=== PATIENT | male | born 1965 | race Caucasian/White ===

== ENCOUNTER 2021-09-20 13:38 | Inpatient (IN) | payer OTHER ==
[2021-09-20] MEDS ORDERED: NICOTINE 10 MG CARTRIDGE (INHALER) IH PRN (14:30)
[2021-09-20] MEDS ORDERED: ONDANSETRON *ODT* 4 MG TABLET SL PRN (14:30)
[2021-09-20] MEDS ORDERED: BISMUTH SUBSALICYLATE 524 MG/30 ML PO PRN (14:30)
[2021-09-20] MEDS ORDERED: MAGNESIUM HYDROX 2400MG/30ML ORAL SUSPENSION 30 ML CUP PO PRN (14:30)
[2021-09-20] MEDS ORDERED: MAGNESIUM CITRATE 300 ML BOTTLE PO PRN (14:30)
[2021-09-20] MEDS ORDERED: ACETAMINOPHEN 325 MG TABLET (FP) PO PRN (14:30)
[2021-09-20] MEDS ORDERED: methaDONE HCL 10 MG TABLET (FOR DETOX USE ONLY) PO ONE (14:30)
[2021-09-20] MEDS ORDERED: MENTHOL/PHENOL 1 EACH UD MM PRN (14:30)
[2021-09-20] MEDS ORDERED: MAG HYDROX/AL HYDROX/SIMETH 30 ML UNIT-DOSE CUP PO PRN (14:30)
[2021-09-20 16:30] VITALS: BMI 19.8
[2021-09-20] MEDS: ACETAMINOPHEN 325 MG TABLET (FP) PO PRN (17:33)
[2021-09-20] MEDS: hydrOXYzine PAMOATE 25 MG CAPSULE (FP) PO SCH ×2 (18:20→23:11)
[2021-09-20] MEDS ORDERED: MELATONIN 5 MG TABLETS PO SCH (22:00)
[2021-09-20] MEDS: THIAMINE HCL 100 MG TABLET (FP) PO SCH (23:11)
[2021-09-21] MEDS: hydrOXYzine PAMOATE 25 MG CAPSULE (FP) PO SCH ×5 (06:03→22:50)
[2021-09-21] MEDS: METHOCARBAMOL 500 MG TABLET PO PRN (06:13)
[2021-09-21] MEDS: IBUPROFEN 400 MG TABLET (FP) PO PRN (06:13)
[2021-09-21] MEDS ORDERED: methaDONE HCL 10 MG TABLET (FOR DETOX USE ONLY) ONE (09:24)
[2021-09-21] MEDS: PRENATAL VITAMINS W/ FOLIC ACID TABLET (FP) PO SCH (10:19)
[2021-09-21] MEDS: NICOTINE 7 MG/24 HOURS TOPICAL PATCH TD SCH (10:22)
[2021-09-21 10:31] LABS: HEMATOCRIT 35.8 % (35.4-49); HEMOGLOBIN 11.8 GM/dL (11.7-16.9); MCH 28.4 pg (25.7-33.7); MCHC 32.8 g/dl (32.0-35.9); MEAN CELL VOLUME 86.6 fl (80-96); MEAN PLT VOLUME 8.3 fl (7.5-11.1); PLATELET COUNT 351 10^3/uL (134-434); RBC 4.14 M/mm3 (4.00-5.60); RDW 15.5 % (11.9-15.9)
[2021-09-21 10:36] LABS: ALBUMIN 2.9 g/dl (3.4-5.0)
[2021-09-21 10:38] LABS: CALCIUM 8.9 mg/dL (8.5-10.1)
[2021-09-21 10:42] LABS: TOT PROT 7.2 g/dl (6.4-8.2)
[2021-09-21 10:43] LABS: CREATININE 1.1 mg/dL (0.55-1.3)
[2021-09-21 10:47] LABS: BILIRUBIN,TOTAL 0.3 mg/dL (0.2-1)
[2021-09-21] MEDS: cloNIDine HCL 0.1 MG TABLET PO PRN ×2 (11:29→22:52)
[2021-09-21] MEDS ORDERED: diazePAM 5 MG TABLET PO PRN (11:52)
[2021-09-21 12:34] LABS: HIV INTERPRETATION NEGATIVE (NEGATIVE)
[2021-09-21] MEDS: ACETAMINOPHEN 325 MG TABLET (FP) PO PRN (18:59)
[2021-09-21] MEDS ORDERED: hydrOXYzine PAMOATE 50 MG CAPSULE (FP) PO ONE (20:53)
[2021-09-21] MEDS ORDERED: TRIMETHOBENZAMIDE HCL 200MG/2ML INJ IM ONE (20:55)
[2021-09-21] MEDS ORDERED: SUVOREXANT 10 MG TABLET PO PRN (22:00)
[2021-09-21] MEDS: THIAMINE HCL 100 MG TABLET (FP) PO SCH (22:52)
[2021-09-22] MEDS: hydrOXYzine PAMOATE 25 MG CAPSULE (FP) PO SCH ×5 (05:49→23:27)
[2021-09-22] MEDS: IBUPROFEN 400 MG TABLET (FP) PO PRN ×4 (05:49→23:25)
[2021-09-22] MEDS: METHOCARBAMOL 500 MG TABLET PO PRN ×4 (05:49→23:26)
[2021-09-22] MEDS: cloNIDine HCL 0.1 MG TABLET PO PRN ×3 (05:50→23:22)
[2021-09-22] MEDS: diazePAM 5 MG TABLET PO PRN ×3 (05:50→23:26)
[2021-09-22] MEDS ORDERED: methaDONE HCL 10 MG TABLET (FOR DETOX USE ONLY) PO ONE (10:00)
[2021-09-22] MEDS: amLODIPine BESYLATE 10 MG TABLET (FP) PO SCH (10:53)
[2021-09-22] MEDS: PRENATAL VITAMINS W/ FOLIC ACID TABLET (FP) PO SCH (10:54)
[2021-09-22] MEDS: NICOTINE 7 MG/24 HOURS TOPICAL PATCH TD SCH (10:57)
[2021-09-22] MEDS: LIDOCAINE 5% TOPICAL PATCH TP SCH (10:57)
[2021-09-22] MEDS: ACETAMINOPHEN 325 MG TABLET (FP) PO PRN (16:00)
[2021-09-22] MEDS: LIDOCAINE PATCH REMOVAL MC SCH (23:22)
[2021-09-22] MEDS: THIAMINE HCL 100 MG TABLET (FP) PO SCH (23:22)
[2021-09-23] MEDS ORDERED: diazePAM 5 MG TABLET PO PRN (00:01)
[2021-09-23] MEDS: hydrOXYzine PAMOATE 25 MG CAPSULE (FP) PO SCH ×5 (06:01→23:39)
[2021-09-23] MEDS: LIDOCAINE 5% TOPICAL PATCH TP SCH (11:07)
[2021-09-23] MEDS: amLODIPine BESYLATE 10 MG TABLET (FP) PO SCH (11:08)
[2021-09-23] MEDS: PRENATAL VITAMINS W/ FOLIC ACID TABLET (FP) PO SCH (11:08)
[2021-09-23] MEDS: NICOTINE 7 MG/24 HOURS TOPICAL PATCH TD SCH (11:09)
[2021-09-23 15:32] VITALS: BP 136/84; PULSE 87; TEMP 98.2
[2021-09-23] MEDS: THIAMINE HCL 100 MG TABLET (FP) PO SCH (23:39)
[2021-09-23] MEDS: LIDOCAINE PATCH REMOVAL MC SCH (23:39)
[2021-09-24] MEDS ORDERED: diazePAM 5 MG TABLET PO PRN (00:01)
[2021-09-24] MEDS ORDERED: methaDONE HCL 10 MG TABLET (FOR DETOX USE ONLY) PO ONE (10:00)
== END 2021-09-23 23:38 | disposition short-term general hospital (02) | DRG 773 ==
LOC: YASAS 13:38 → Y6N 15:42
PROVIDERS: ADMIT Allergy & Immunology; ATTEND Allergy & Immunology
PROC: HZ2ZZZZ Detoxification Services for Substance Abuse Treatment (ICD-10-PCS; principal; 2021-09-20)
DX: F11.23 Opioid dependence with withdrawal (principal); F14.20 Cocaine dependence, uncomplicated; F17.210 Nicotine dependence, cigarettes, uncomplicated; F43.10 Post-traumatic stress disorder, unspecified; F19.24 Other psychoactive substance dependence with psychoactive substance-induced mood disorder; F19.280 Other psychoactive substance dependence with psychoactive substance-induced anxiety disorder; F19.282 Other psychoactive substance dependence with psychoactive substance-induced sleep disorder; I10 Essential (primary) hypertension; M54.59 Other low back pain; G89.29 Other chronic pain; R73.09 Other abnormal glucose; R63.4 Abnormal weight loss; R26.2 Difficulty in walking, not elsewhere classified; Z99.89 Dependence on other enabling machines and devices; W19.XXXA Unspecified fall, initial encounter; Y93.9 Activity, unspecified; Y92.239 Unspecified place in hospital as the place of occurrence of the external cause; Z88.8 Allergy status to other drugs, medicaments and biological substances; Z91.51 Personal history of suicidal behavior; Z62.810 Personal history of physical and sexual abuse in childhood; Z86.19 Personal history of other infectious and parasitic diseases; Z56.0 Unemployment, unspecified
CPT/HCPCS: 36415; 72100-TC-FY; 80053; 82962; 85027; 86780; 86803; 87389; 87522; C9803; J0735; U0003; U0005

== ENCOUNTER 2021-09-23 11:21 | Inpatient (IN) | payer OTHER ==
[2021-09-23] MEDS ORDERED: ACETAMINOPHEN 1000 MG/100 ML VIAL IVPB ONE (12:14)
[2021-09-23] MEDS ORDERED: SODIUM CHLORIDE 0.9% 500 ML INFUS.BAG IV ONE (12:14)
[2021-09-23] MEDS ORDERED: LIDOCAINE 5% TOPICAL PATCH TP ONE (12:15)
[2021-09-23] MEDS ORDERED: ACETAMINOPHEN INJECTION 100 ML IVPB ONE (12:41)
[2021-09-23] MEDS ORDERED: LIDOCAINE 5% TOPICAL PATCH ONE (12:41)
[2021-09-23 12:54] LABS: EOS % 0.2 % (0-4.5); HEMATOCRIT 41.6 % (35.4-49); HEMOGLOBIN 14.1 GM/dL (11.7-16.9); LYMPH % 20.3 % (8-40); MCH 28.7 pg (25.7-33.7); MCHC 33.8 g/dl (32.0-35.9); MEAN CELL VOLUME 84.9 fl (80-96); NEUT % 69.5 % (42.8-82.8); PLATELET COUNT 387 10^3/uL (134-434); RBC 4.91 M/mm3 (4.00-5.60); RDW 15.4 % (11.9-15.9); WHITE BLOOD COUNT 7.1 K/mm3 (4.0-10.0)
[2021-09-23 13:23] LABS: CHLORIDE 98 mmol/L (98-107); SODIUM 135 mmol/L (136-145)
[2021-09-23 13:25] LABS: ANION GAP 9 MMOL/L (8-16); BLOOD UREA NITROGEN 15.8 mg/dL (7-18); CALCIUM 10.1 mg/dL (8.5-10.1); CO2 29 mmol/L (21-32); GLUCOSE,RANDOM 145 mg/dL (74-106)
[2021-09-23 13:28] LABS: SGOT/AST 17 U/L (15-37); SGPT/ALT 16 U/L (13-61)
[2021-09-23 13:30] LABS: BILIRUBIN,TOTAL 0.6 mg/dL (0.2-1); TOT PROT 8.8 g/dl (6.4-8.2)
[2021-09-23 13:31] LABS: ALK PHOS 131 U/L (45-117)
[2021-09-23 13:50] LABS: ALBUMIN 3.5 g/dl (3.4-5.0)
[2021-09-23] MEDS ORDERED: methaDONE HCL 10 MG TABLET PO ONE (14:24)
[2021-09-23] MEDS ORDERED: methaDONE HCL 10 MG TABLET ONE (14:38)
[2021-09-23] MEDS ORDERED: SUVOREXANT 10 MG TABLET PO PRN (14:47)
[2021-09-23 16:32] LABS: URINE APPEARANCE CLEAR; URINE BILIRUBIN NEGATIVE (NEGATIVE); URINE COLOR YELLOW; URINE GLUCOSE (UA) TRACE (NEGATIVE); URINE KETONE NEGATIVE (NEGATIVE); URINE LEUK ESTERASE NEGATIVE (NEGATIVE); URINE NITRITE NEGATIVE (NEGATIVE); URINE PROTEIN NEGATIVE (NEGATIVE); URINE UROBILINOGEN 0.2 mg/dL (0.2-1.0)
[2021-09-23] MEDS: diazePAM 5 MG TABLET PO PRN ×2 (16:40→22:45)
[2021-09-23] MEDS ORDERED: diazePAM 5 MG TABLET ONE ×2 (16:41→22:43)
[2021-09-23] MEDS: NICOTINE 14 MG/24 HOURS TOPICAL PATCH TD SCH ×2 (21:58→23:37)
[2021-09-23] MEDS ORDERED: LIDOCAINE PATCH REMOVAL MC ONE (22:00)
[2021-09-23 23:52] VITALS: BMI 22.4
[2021-09-24] MEDS: ZOLPIDEM TARTRATE 5 MG TABLET PO PRN ×2 (00:18→21:13)
[2021-09-24] MEDS ORDERED: ACETAMINOPHEN 1000 MG/100 ML VIAL IVPB ONE ×2 (01:11→21:00)
[2021-09-24] MEDS: diazePAM 5 MG TABLET PO PRN ×2 (04:28→21:12)
[2021-09-24 08:44] LABS: CALCIUM 9.6 mg/dL (8.5-10.1)
[2021-09-24 08:45] LABS: BLOOD UREA NITROGEN 12.7 mg/dL (7-18); MAGNESIUM 2.4 mg/dL (1.8-2.4)
[2021-09-24 08:48] LABS: CREATININE 0.8 mg/dL (0.55-1.3)
[2021-09-24] MEDS ORDERED: NICOTINE 14 MG/24 HOURS TOPICAL PATCH TD SCH (10:00)
[2021-09-24] MEDS ORDERED: methaDONE HCL 10 MG TABLET ONE (10:18)
[2021-09-24] MEDS: cloNIDine HCL 0.1 MG TABLET PO PRN (10:20)
[2021-09-24] MEDS: amLODIPine BESYLATE 10 MG TABLET (FP) PO SCH (10:26)
[2021-09-24] MEDS: NICOTINE 14 MG/24 HOURS TOPICAL PATCH TD SCH (10:26)
[2021-09-24] MEDS ORDERED: oxyCODONE HCL 5 MG TABLET PO ONE (13:03)
[2021-09-24] MEDS ORDERED: MELATONIN 5 MG TABLETS PO ONE (21:01)
[2021-09-25] MEDS: diazePAM 5 MG TABLET PO PRN ×2 (08:12→17:44)
[2021-09-25] MEDS: amLODIPine BESYLATE 10 MG TABLET (FP) PO SCH (09:14)
[2021-09-25] MEDS: NICOTINE 14 MG/24 HOURS TOPICAL PATCH TD SCH (09:14)
[2021-09-25] MEDS ORDERED: methaDONE HCL 10 MG TABLET PO ONE (10:00)
[2021-09-25] MEDS ORDERED: IBUPROFEN 200 MG TABLET PO ONE (10:28)
[2021-09-25] MEDS: POLYETHYLENE GLYCOL (HEALTHYLAX) 3350 17 GM PACKET PO SCH (11:52)
[2021-09-25] MEDS: LIDOCAINE 5% TOPICAL PATCH TP SCH (11:57)
[2021-09-25 17:59] LABS: BASO % 1.1 % (0-2.0); EOS % 1.7 % (0-4.5); HEMATOCRIT 36.8 % (35.4-49); HEMOGLOBIN 12.2 GM/dL (11.7-16.9); LYMPH % 31.7 % (8-40); MCH 28.1 pg (25.7-33.7); MCHC 33.1 g/dl (32.0-35.9); MEAN CELL VOLUME 85.1 fl (80-96); MEAN PLT VOLUME 8.3 fl (7.5-11.1); MONO % 10.1 % (3.8-10.2); NEUT % 55.4 % (42.8-82.8); PLATELET COUNT 334 10^3/uL (134-434); RBC 4.33 M/mm3 (4.00-5.60); RDW 15.5 % (11.9-15.9); WHITE BLOOD COUNT 6.9 K/mm3 (4.0-10.0)
[2021-09-25 18:19] LABS: CHLORIDE 101 mmol/L (98-107); SODIUM 139 mmol/L (136-145)
[2021-09-25 18:24] LABS: ANION GAP 7 MMOL/L (8-16); CALCIUM 9.2 mg/dL (8.5-10.1); CO2 32 mmol/L (21-32); GLUCOSE,RANDOM 89 mg/dL (74-106); MAGNESIUM 2.6 mg/dL (1.8-2.4)
[2021-09-25 18:27] LABS: CREATININE 1.2 mg/dL (0.55-1.3); SGOT/AST 10 U/L (15-37); SGPT/ALT 12 U/L (13-61)
[2021-09-25 18:29] LABS: BILIRUBIN,TOTAL 0.3 mg/dL (0.2-1); TOT PROT 7.3 g/dl (6.4-8.2)
[2021-09-25 18:30] LABS: ALK PHOS 131 U/L (45-117)
[2021-09-25] MEDS: LIDOCAINE PATCH REMOVAL MC SCH (21:18)
[2021-09-25] MEDS: ZOLPIDEM TARTRATE 5 MG TABLET PO PRN (21:20)
[2021-09-25] MEDS ORDERED: IBUPROFEN 400 MG TABLET (FP) PO ONE (22:16)
[2021-09-26] MEDS: diazePAM 5 MG TABLET PO PRN ×3 (02:46→21:19)
[2021-09-26] MEDS ORDERED: KETOROLAC TROMETHAMINE 30 MG/1 ML VIAL IM ONE (03:50)
[2021-09-26] MEDS: cloNIDine HCL 0.1 MG TABLET PO PRN ×3 (04:05→17:03)
[2021-09-26] MEDS ORDERED: IBUPROFEN 200 MG TABLET PO ONE (08:45)
[2021-09-26] MEDS ORDERED: NICOTINE POLACRILEX 4 MG GUM BUC PRN (09:18)
[2021-09-26] MEDS: amLODIPine BESYLATE 10 MG TABLET (FP) PO SCH (09:31)
[2021-09-26] MEDS: POLYETHYLENE GLYCOL (HEALTHYLAX) 3350 17 GM PACKET PO SCH (09:32)
[2021-09-26] MEDS: LIDOCAINE 5% TOPICAL PATCH TP SCH (09:32)
[2021-09-26] MEDS ORDERED: LIDOCAINE 5% TOPICAL PATCH TP ONE (10:07)
[2021-09-26] MEDS ORDERED: oxyCODONE HCL 5 MG TABLET PO PRN (10:11)
[2021-09-26] MEDS ORDERED: oxyCODONE HCL 20 MG SUSTAINED ACTING TABLET PO SCH (10:15)
[2021-09-26] MEDS: ACETAMINOPHEN 325 MG TABLET (FP) PO SCH ×3 (11:16→22:10)
[2021-09-26] MEDS: GABAPENTIN 100 MG CAPSULE PO SCH ×2 (14:47→21:19)
[2021-09-26] MEDS: oxyCODONE HCL 5 MG TABLET PO PRN ×2 (15:17→22:14)
[2021-09-26 20:08] LABS: BASO % 1.2 % (0-2.0); EOS % 2.1 % (0-4.5); HEMOGLOBIN 11.3 GM/dL (11.7-16.9); MCH 28.4 pg (25.7-33.7); MCHC 33.3 g/dl (32.0-35.9); MEAN CELL VOLUME 85.3 fl (80-96); MEAN PLT VOLUME 7.9 fl (7.5-11.1); NEUT % 57.7 % (42.8-82.8); PLATELET COUNT 277 10^3/uL (134-434); RBC 3.99 M/mm3 (4.00-5.60); RDW 15.7 % (11.9-15.9); WHITE BLOOD COUNT 6.4 K/mm3 (4.0-10.0)
[2021-09-26] MEDS: ZOLPIDEM TARTRATE 5 MG TABLET PO PRN (21:18)
[2021-09-26] MEDS ORDERED: LIDOCAINE PATCH REMOVAL MC ONE (22:00)
[2021-09-26 22:02] LABS: ALBUMIN 2.6 g/dl (3.4-5.0); BILIRUBIN,TOTAL 0.2 mg/dL (0.2-1); BLOOD UREA NITROGEN 31.9 mg/dL (7-18); CALCIUM 8.7 mg/dL (8.5-10.1); CREATININE 1.1 mg/dL (0.55-1.3); MAGNESIUM 2.3 mg/dL (1.8-2.4); TOT PROT 6.5 g/dl (6.4-8.2)
[2021-09-26] MEDS: LIDOCAINE PATCH REMOVAL MC SCH (22:14)
[2021-09-27] MEDS: oxyCODONE HCL 5 MG TABLET PO PRN ×2 (03:15→09:20)
[2021-09-27] MEDS: ACETAMINOPHEN 325 MG TABLET (FP) PO SCH ×4 (03:16→21:52)
[2021-09-27] MEDS: diazePAM 5 MG TABLET PO PRN (05:41)
[2021-09-27] MEDS: GABAPENTIN 100 MG CAPSULE PO SCH (05:42)
[2021-09-27] MEDS: LIDOCAINE 5% TOPICAL PATCH TP SCH (09:18)
[2021-09-27] MEDS: amLODIPine BESYLATE 10 MG TABLET (FP) PO SCH (09:18)
[2021-09-27] MEDS: POLYETHYLENE GLYCOL (HEALTHYLAX) 3350 17 GM PACKET PO SCH (09:19)
[2021-09-27] MEDS ORDERED: morphine SO4 SUSTAINED ACTING 15 MG TABLET.SA PO ONE ×2 (10:45→22:27)
[2021-09-27] MEDS: GABAPENTIN 300 MG CAPSULE PO SCH ×2 (14:27→21:22)
[2021-09-27] MEDS ORDERED: NICOTINE POLACRILEX 4 MG GUM BUC PRN (19:41)
[2021-09-27] MEDS ORDERED: ZOLPIDEM TARTRATE 5 MG TABLET PO PRN (19:41)
[2021-09-27] MEDS ORDERED: LIDOCAINE PATCH REMOVAL MC SCH (22:00)
[2021-09-27] MEDS ORDERED: cloNIDine HCL 0.1 MG TABLET PO PRN (22:20)
[2021-09-27] MEDS ORDERED: KETOROLAC TROMETHAMINE 15 MG/ML VIAL IVPUSH ONE (22:28)
[2021-09-27] MEDS ORDERED: DOCUSATE SODIUM 100 MG CAPSULE (FP) PO PRN (22:30)
[2021-09-28] MEDS: ACETAMINOPHEN 325 MG TABLET (FP) PO SCH ×4 (04:20→11:25)
[2021-09-28] MEDS: GABAPENTIN 300 MG CAPSULE PO SCH (05:45)
[2021-09-28 06:25] VITALS: TEMP 98.4
[2021-09-28] MEDS ORDERED: amLODIPine BESYLATE 10 MG TABLET (FP) PO SCH (10:00)
[2021-09-28] MEDS ORDERED: LIDOCAINE 5% TOPICAL PATCH TP SCH (10:00)
[2021-09-28] MEDS ORDERED: POLYETHYLENE GLYCOL (HEALTHYLAX) 3350 17 GM PACKET PO SCH (10:00)
[2021-09-28 11:06] VITALS: BP 155/79; PULSE 81
[2021-09-28] MEDS ORDERED: LIDOCAINE PATCH REMOVAL MC SCH (22:00)
== END 2021-09-28 14:02 | disposition left against medical advice (07) | DRG 770 ==
LOC: JER 11:21 → JERBED 14:39 → J4W 23:34 → OBSVTOIN 09-27 11:43 → J6S 09-27 17:20
PROVIDERS: ADMIT Internal Medicine; ATTEND Nurse Practitioner Acute Care
DX: F11.23 Opioid dependence with withdrawal (principal); F14.10 Cocaine abuse, uncomplicated; I10 Essential (primary) hypertension; R11.2 Nausea with vomiting, unspecified; R55 Syncope and collapse; R07.89 Other chest pain; F43.10 Post-traumatic stress disorder, unspecified; F19.20 Other psychoactive substance dependence, uncomplicated; R45.851 Suicidal ideations; M54.50 Low back pain, unspecified; B15.9 Hepatitis A without hepatic coma; F13.20 Sedative, hypnotic or anxiolytic dependence, uncomplicated
CPT/HCPCS: 36415; 70450-TC; 71046-TC-FY; 72125-TC; 80048; 80053; 81003; 82550; 83735; 84484; 85025; 87086; 93005; 93010; 97116-GP; 97162-GP; 99285-25; C9803; G0378; J0131; J0735; U0003; U0005

== ENCOUNTER 2022-05-18 12:25 | Inpatient (IN) | payer OTHER ==
[2022-05-18 14:28] VITALS: BMI 20.3
[2022-05-18] MEDS ORDERED: BENZOCAINE/MENTHOL (CHLORASEPTIC ) LOZENGE MM PRN (14:58)
[2022-05-18] MEDS ORDERED: MAG HYDROX/AL HYDROX/SIMETH 30 ML UNIT-DOSE CUP PO PRN (14:58)
[2022-05-18] MEDS ORDERED: IBUPROFEN 400 MG TABLET (FP) PO PRN (14:58)
[2022-05-18] MEDS ORDERED: METHOCARBAMOL 500 MG TABLET PO PRN (14:58)
[2022-05-18] MEDS ORDERED: IBUPROFEN 600 MG TABLET (FP) PO PRN (14:58)
[2022-05-18] MEDS ORDERED: MAGNESIUM CITRATE 300 ML BOTTLE PO PRN (14:58)
[2022-05-18] MEDS ORDERED: MAGNESIUM HYDROX 2400MG/30ML ORAL SUSPENSION 30 ML CUP PO PRN (14:58)
[2022-05-18] MEDS ORDERED: BISMUTH SUBSALICYLATE 262 MG/15 ML BTL PO PRN (14:58)
[2022-05-18] MEDS ORDERED: ACETAMINOPHEN 325 MG TABLET (FP) PO PRN ×2 (14:58)
[2022-05-18] MEDS ORDERED: LOPERAMIDE HCL 2 MG CAPSULE PO PRN (14:58)
[2022-05-18] MEDS ORDERED: DICYCLOMINE HCL 10 MG CAPSULE PO PRN (14:58)
[2022-05-18] MEDS ORDERED: methaDONE HCL 10 MG TABLET (FOR DETOX USE ONLY) PO ONE (15:30)
[2022-05-18] MEDS: hydrOXYzine PAMOATE 25 MG CAPSULE (FP) PO SCH ×2 (18:29→23:12)
[2022-05-18] MEDS: diazePAM 5 MG TABLET PO SCH ×2 (18:29→23:12)
[2022-05-18] MEDS: MELATONIN 5 MG TABLETS PO SCH (23:12)
[2022-05-18] MEDS: THIAMINE HCL 100 MG TABLET (FP) PO SCH (23:12)
[2022-05-19] MEDS: diazePAM 5 MG TABLET PO SCH ×4 (06:50→23:12)
[2022-05-19] MEDS: hydrOXYzine PAMOATE 25 MG CAPSULE (FP) PO SCH (06:51)
[2022-05-19] MEDS: hydrOXYzine PAMOATE 25 MG CAPSULE (FP) PO PRN (10:50)
[2022-05-19] MEDS: amLODIPine BESYLATE 10 MG TABLET (FP) PO SCH (10:51)
[2022-05-19] MEDS: PRENATAL VITAMINS W/ FOLIC ACID TABLET (FP) PO SCH (10:51)
[2022-05-19] MEDS: methaDONE HCL 40 MG DISPERSABLE TABLET PO SCH (10:53)
[2022-05-19 11:07] LABS: HEMATOCRIT 33.3 % (35.4-49); HEMOGLOBIN 11.1 GM/dL (11.7-16.9); MCH 28.3 pg (25.7-33.7); MCHC 33.5 g/dl (32.0-35.9); MEAN CELL VOLUME 84.6 fl (80-96); MEAN PLT VOLUME 8.5 fl (7.5-11.1); PLATELET COUNT 283 10^3/uL (134-434); RBC 3.93 M/mm3 (4.00-5.60); RDW 15.5 % (11.9-15.9); WHITE BLOOD COUNT 4.7 K/mm3 (4.0-10.0)
[2022-05-19 11:34] LABS: CALCIUM 9.2 mg/dL (8.5-10.1)
[2022-05-19 11:35] LABS: BLOOD UREA NITROGEN 18.8 mg/dL (7-18)
[2022-05-19 11:39] LABS: BILIRUBIN,TOTAL 0.7 mg/dL (0.2-1)
[2022-05-19 11:42] LABS: TOT PROT 6.6 g/dl (6.4-8.2)
[2022-05-19] MEDS: ONDANSETRON *ODT* 4 MG TABLET SL PRN (13:21)
[2022-05-19] MEDS ORDERED: cloNIDine HCL 0.1 MG TABLET PO ONE (13:21)
[2022-05-19] MEDS: MELATONIN 5 MG TABLETS PO SCH (23:11)
[2022-05-19] MEDS: THIAMINE HCL 100 MG TABLET (FP) PO SCH (23:12)
[2022-05-20] MEDS: diazePAM 5 MG TABLET PO SCH ×3 (06:17→22:45)
[2022-05-20] MEDS: methaDONE HCL 40 MG DISPERSABLE TABLET PO SCH (06:18)
[2022-05-20] MEDS: diazePAM 5 MG TABLET PO PRN ×2 (08:48→19:11)
[2022-05-20] MEDS: amLODIPine BESYLATE 10 MG TABLET (FP) PO SCH (10:58)
[2022-05-20] MEDS: PRENATAL VITAMINS W/ FOLIC ACID TABLET (FP) PO SCH (10:58)
[2022-05-20] MEDS: hydrOXYzine PAMOATE 25 MG CAPSULE (FP) PO PRN (10:58)
[2022-05-20] MEDS: ONDANSETRON *ODT* 4 MG TABLET SL PRN (21:56)
[2022-05-20] MEDS: MELATONIN 5 MG TABLETS PO SCH (22:45)
[2022-05-20] MEDS: THIAMINE HCL 100 MG TABLET (FP) PO SCH (22:45)
[2022-05-21] MEDS: diazePAM 5 MG TABLET PO PRN ×2 (02:50→10:06)
[2022-05-21] MEDS: methaDONE HCL 40 MG DISPERSABLE TABLET PO SCH (06:31)
[2022-05-21] MEDS: diazePAM 5 MG TABLET PO SCH ×2 (06:31→18:10)
[2022-05-21] MEDS: amLODIPine BESYLATE 10 MG TABLET (FP) PO SCH (10:06)
[2022-05-21] MEDS: PRENATAL VITAMINS W/ FOLIC ACID TABLET (FP) PO SCH (10:06)
[2022-05-21] MEDS: ONDANSETRON *ODT* 4 MG TABLET SL PRN (18:11)
[2022-05-21] MEDS: THIAMINE HCL 100 MG TABLET (FP) PO SCH (22:38)
[2022-05-21] MEDS: MELATONIN 5 MG TABLETS PO SCH (22:38)
[2022-05-22] MEDS: methaDONE HCL 40 MG DISPERSABLE TABLET PO SCH (05:43)
[2022-05-22] MEDS ORDERED: diazePAM 5 MG TABLET PO ONE (06:00)
[2022-05-22] MEDS ORDERED: TRIMETHOBENZAMIDE HCL 200MG/2ML INJ IM ONE (07:17)
[2022-05-22] MEDS: PRENATAL VITAMINS W/ FOLIC ACID TABLET (FP) PO SCH (10:27)
[2022-05-22] MEDS: amLODIPine BESYLATE 10 MG TABLET (FP) PO SCH (10:27)
[2022-05-22] MEDS: MELATONIN 5 MG TABLETS PO SCH (23:03)
[2022-05-22] MEDS: THIAMINE HCL 100 MG TABLET (FP) PO SCH (23:03)
[2022-05-22] MEDS: hydrOXYzine PAMOATE 25 MG CAPSULE (FP) PO PRN (23:03)
[2022-05-23] MEDS: methaDONE HCL 40 MG DISPERSABLE TABLET PO SCH (05:36)
[2022-05-23 06:58] VITALS: TEMP 97.7
[2022-05-23 09:24] VITALS: BP 145/86; PULSE 57; RESP 18
[2022-05-23] MEDS: amLODIPine BESYLATE 10 MG TABLET (FP) PO SCH (10:08)
[2022-05-23] MEDS: PRENATAL VITAMINS W/ FOLIC ACID TABLET (FP) PO SCH (10:08)
== END 2022-05-23 10:27 | disposition home or self-care (01) | DRG 773 ==
LOC: YASAS 12:25 → Y3N 15:25
PROVIDERS: ADMIT Allergy & Immunology; ATTEND Surgery
PROC: HZ2ZZZZ Detoxification Services for Substance Abuse Treatment (ICD-10-PCS; principal; 2022-05-18)
DX: F11.23 Opioid dependence with withdrawal (principal); F13.230 Sedative, hypnotic or anxiolytic dependence with withdrawal, uncomplicated; F14.20 Cocaine dependence, uncomplicated; F12.20 Cannabis dependence, uncomplicated; F17.210 Nicotine dependence, cigarettes, uncomplicated; F19.24 Other psychoactive substance dependence with psychoactive substance-induced mood disorder; F19.282 Other psychoactive substance dependence with psychoactive substance-induced sleep disorder; F19.280 Other psychoactive substance dependence with psychoactive substance-induced anxiety disorder; I10 Essential (primary) hypertension; Z86.19 Personal history of other infectious and parasitic diseases; Z88.8 Allergy status to other drugs, medicaments and biological substances; Z91.51 Personal history of suicidal behavior
CPT/HCPCS: 36415; 80053; 85027; 86780; 93005; 93010; C9803-CS; J0735; Q0162; U0003; U0005

== ENCOUNTER 2022-08-14 10:35 | Inpatient (IN) | payer OTHER ==
[2022-08-14 11:09] VITALS: BMI 20.1
[2022-08-14] MEDS ORDERED: DICYCLOMINE HCL 10 MG CAPSULE PO PRN (11:25)
[2022-08-14] MEDS ORDERED: NALOXONE HCL (KLOXXADO) 8 MG SPRAY NS PRN (11:25)
[2022-08-14] MEDS ORDERED: MAGNESIUM HYDROX 2400MG/30ML ORAL SUSPENSION 30 ML CUP PO PRN (11:25)
[2022-08-14] MEDS ORDERED: LORazepam 1 MG TABLET PO PRN (11:25)
[2022-08-14] MEDS ORDERED: hydrOXYzine PAMOATE 25 MG CAPSULE (FP) PO PRN (11:25)
[2022-08-14] MEDS ORDERED: BENZOCAINE/MENTHOL (CHLORASEPTIC ) LOZENGE MM PRN (11:25)
[2022-08-14] MEDS ORDERED: LOPERAMIDE HCL 2 MG CAPSULE PO PRN (11:25)
[2022-08-14] MEDS ORDERED: MAG HYDROX/AL HYDROX/SIMETH 30 ML UNIT-DOSE CUP PO PRN (11:25)
[2022-08-14] MEDS ORDERED: ACETAMINOPHEN 325 MG TABLET (FP) PO PRN ×2 (11:25)
[2022-08-14] MEDS ORDERED: MAGNESIUM CITRATE 300 ML BOTTLE PO PRN (11:25)
[2022-08-14] MEDS ORDERED: LORazepam 2 MG TABLET PO ONE (12:00)
[2022-08-14] MEDS: LORazepam 2 MG TABLET PO SCH ×2 (17:50→22:28)
[2022-08-14] MEDS: THIAMINE HCL 100 MG TABLET (FP) PO SCH (22:29)
[2022-08-15] MEDS ORDERED: cloNIDine HCL 0.1 MG TABLET PO ONE (06:28)
[2022-08-15] MEDS: LORazepam 2 MG TABLET PO SCH ×6 (06:32→22:21)
[2022-08-15] MEDS ORDERED: methaDONE HCL 10 MG TABLET PO SCH (09:00)
[2022-08-15] MEDS: PRENATAL VITAMINS W/ FOLIC ACID TABLET (FP) PO SCH (09:53)
[2022-08-15] MEDS: methaDONE HCL 40 MG DISPERSABLE TABLET PO SCH (09:53)
[2022-08-15] MEDS: amLODIPine BESYLATE 10 MG TABLET (FP) PO SCH (09:54)
[2022-08-15 10:31] LABS: HEMATOCRIT 34.9 % (35.4-49); HEMOGLOBIN 11.3 GM/dL (11.7-16.9); MCH 28.1 pg (25.7-33.7); MCHC 32.5 g/dl (32.0-35.9); MEAN CELL VOLUME 86.5 fl (80-96); MEAN PLT VOLUME 8.6 fl (7.5-11.1); PLATELET COUNT 290 10^3/uL (134-434); RBC 4.03 M/mm3 (4.00-5.60); RDW 16.4 % (11.9-15.9); WHITE BLOOD COUNT 4.9 K/mm3 (4.0-10.0)
[2022-08-15 10:40] LABS: CALCIUM 8.6 mg/dL (8.5-10.1); CREATININE 0.9 mg/dL (0.55-1.3)
[2022-08-15 10:41] LABS: ALBUMIN 2.8 g/dl (3.4-5.0); BLOOD UREA NITROGEN 19.3 mg/dL (7-18)
[2022-08-15 10:42] LABS: BILIRUBIN,TOTAL 0.2 mg/dL (0.2-1); TOT PROT 6.3 g/dl (6.4-8.2)
[2022-08-15] MEDS: THIAMINE HCL 100 MG TABLET (FP) PO SCH (22:21)
[2022-08-15] MEDS: MELATONIN 5 MG TABLETS PO PRN (22:22)
[2022-08-16] MEDS: LORazepam 1 MG TABLET PO SCH ×4 (07:15→22:27)
[2022-08-16] MEDS: methaDONE HCL 40 MG DISPERSABLE TABLET PO SCH ×2 (07:18→10:31)
[2022-08-16] MEDS: amLODIPine BESYLATE 10 MG TABLET (FP) PO SCH (10:15)
[2022-08-16] MEDS: PRENATAL VITAMINS W/ FOLIC ACID TABLET (FP) PO SCH (10:17)
[2022-08-16] MEDS: ONDANSETRON *ODT* 4 MG TABLET SL PRN (18:14)
[2022-08-16] MEDS: THIAMINE HCL 100 MG TABLET (FP) PO SCH (22:27)
[2022-08-16] MEDS: MELATONIN 5 MG TABLETS PO PRN (22:27)
[2022-08-17] MEDS ORDERED: LORazepam 0.5 MG TABLET PO PRN
[2022-08-17] MEDS: LORazepam 0.5 MG TABLET PO SCH ×4 (05:39→23:13)
[2022-08-17] MEDS: ONDANSETRON *ODT* 4 MG TABLET SL PRN ×2 (05:39→20:46)
[2022-08-17] MEDS: PRENATAL VITAMINS W/ FOLIC ACID TABLET (FP) PO SCH (10:00)
[2022-08-17] MEDS: methaDONE HCL 40 MG DISPERSABLE TABLET PO SCH (10:00)
[2022-08-17] MEDS: amLODIPine BESYLATE 10 MG TABLET (FP) PO SCH (10:00)
[2022-08-17] MEDS: METHOCARBAMOL 500 MG TABLET PO PRN ×2 (11:15→23:12)
[2022-08-17] MEDS ORDERED: cloNIDine HCL 0.1 MG TABLET PO ONE ×2 (21:37→23:30)
[2022-08-17] MEDS: MELATONIN 5 MG TABLETS PO PRN (23:13)
[2022-08-17] MEDS: THIAMINE HCL 100 MG TABLET (FP) PO SCH (23:14)
[2022-08-18] MEDS ORDERED: LORazepam 0.5 MG TABLET PO ONE (05:00)
[2022-08-18 09:29] VITALS: BP 142/74; PULSE 55; RESP 18; TEMP 97.3
[2022-08-18] MEDS: amLODIPine BESYLATE 10 MG TABLET (FP) PO SCH (09:29)
[2022-08-18] MEDS: methaDONE HCL 40 MG DISPERSABLE TABLET PO SCH (09:29)
[2022-08-18] MEDS: PRENATAL VITAMINS W/ FOLIC ACID TABLET (FP) PO SCH (09:29)
== END 2022-08-18 09:33 | disposition home or self-care (01) | DRG 773 ==
LOC: YASAS 10:35 → Y3N 11:31
PROVIDERS: ADMIT Allergy & Immunology; ATTEND Surgery
PROC: HZ2ZZZZ Detoxification Services for Substance Abuse Treatment (ICD-10-PCS; principal; 2022-08-14)
DX: F10.230 Alcohol dependence with withdrawal, uncomplicated (principal); F11.20 Opioid dependence, uncomplicated; F14.20 Cocaine dependence, uncomplicated; F12.20 Cannabis dependence, uncomplicated; I10 Essential (primary) hypertension; Z87.891 Personal history of nicotine dependence; Z86.69 Personal history of other diseases of the nervous system and sense organs; Z86.19 Personal history of other infectious and parasitic diseases; Z88.8 Allergy status to other drugs, medicaments and biological substances
CPT/HCPCS: 36415; 80053; 85027; 86780; 87811; C9803-CS; Q0162; U0003; U0005

== ENCOUNTER 2022-11-21 19:16 | Inpatient (IN) | payer OTHER ==
[2022-11-21 22:03] VITALS: BMI 20.9
[2022-11-22] MEDS ORDERED: POLYETHYLENE GLYCOL (HEALTHYLAX) 3350 17 GM PACKET PO PRN (00:52)
[2022-11-22] MEDS ORDERED: P-EPHED 60MG/TRIPROLIDI 2.5MG TABLET PO PRN (00:52)
[2022-11-22] MEDS ORDERED: MAG HYDROX/AL HYDROX/SIMETH 30 ML UNIT-DOSE CUP PO PRN (00:52)
[2022-11-22] MEDS ORDERED: MAGNESIUM HYDROX 2400MG/30ML ORAL SUSPENSION 30 ML CUP PO PRN (00:52)
[2022-11-22] MEDS ORDERED: BENZOCAINE/MENTHOL (CHLORASEPTIC ) LOZENGE MM PRN (00:52)
[2022-11-22] MEDS ORDERED: LOPERAMIDE HCL 2 MG CAPSULE PO PRN (00:52)
[2022-11-22] MEDS ORDERED: ACETAMINOPHEN 325 MG TABLET (FP) PO PRN (00:52)
[2022-11-22] MEDS ORDERED: guaiFENesin 200 MG/10 ML 10 ML UNIT-DOSE CUPS PO PRN (00:52)
[2022-11-22] MEDS ORDERED: TUBERCULIN PPD 5 TU/0.1ML VIAL ID ONE ×2 (02:59→03:56)
[2022-11-22] MEDS: methaDONE HCL 40 MG DISPERSABLE TABLET PO SCH (09:28)
[2022-11-22] MEDS: PRENATAL VITAMINS W/ FOLIC ACID TABLET (FP) PO SCH (09:28)
[2022-11-22 10:45] LABS: HEMATOCRIT 34.8 % (35.4-49); HEMOGLOBIN 11.8 GM/dL (11.7-16.9); MEAN CELL VOLUME 85.4 fl (80-96); MEAN PLT VOLUME 8.4 fl (7.5-11.1); PLATELET COUNT 299 10^3/uL (134-434); RBC 4.08 M/mm3 (4.00-5.60); RDW 16.2 % (11.9-15.9); WHITE BLOOD COUNT 6.1 K/mm3 (4.0-10.0)
[2022-11-22 11:28] LABS: ALBUMIN 2.9 g/dl (3.4-5.0); BLOOD UREA NITROGEN 42.6 mg/dL (7-18); CALCIUM 8.7 mg/dL (8.5-10.1)
[2022-11-22 11:31] LABS: CREATININE 1.5 mg/dL (0.55-1.3)
[2022-11-22 11:33] LABS: BILIRUBIN,TOTAL 0.3 mg/dL (0.2-1); TOT PROT 6.4 g/dl (6.4-8.2)
[2022-11-22] MEDS: amLODIPine BESYLATE 10 MG TABLET (FP) PO SCH (11:36)
[2022-11-22] MEDS ORDERED: POTASSIUM CHLORIDE TABS 20 MEQ TABLET.ER (FP) PO ONE (11:45)
[2022-11-22] MEDS ORDERED: POTASSIUM CHLORIDE TABS 20 MEQ TABLET.ER (FP) PO SCH (11:45)
[2022-11-22] MEDS: hydrOXYzine PAMOATE 25 MG CAPSULE (FP) PO PRN (12:31)
[2022-11-22] MEDS: MELATONIN 5 MG TABLETS PO SCH (21:51)
[2022-11-22] MEDS: THIAMINE HCL 100 MG TABLET (FP) PO SCH (21:51)
[2022-11-23] MEDS: methaDONE HCL 40 MG DISPERSABLE TABLET PO SCH (06:23)
[2022-11-23] MEDS ORDERED: cloNIDine HCL 0.1 MG TABLET PO ONE (07:30)
[2022-11-23] MEDS ORDERED: POTASSIUM CHLORIDE ORAL LIQUID 20 MEQ/15 ML PO ONE (07:45)
[2022-11-23] MEDS: amLODIPine BESYLATE 10 MG TABLET (FP) PO SCH (09:22)
[2022-11-23] MEDS: PRENATAL VITAMINS W/ FOLIC ACID TABLET (FP) PO SCH (09:22)
[2022-11-23 10:51] LABS: INR 0.95 (0.83-1.09)
[2022-11-23 11:31] LABS: CALCIUM 9.4 mg/dL (8.5-10.1)
[2022-11-23 11:34] LABS: CREATININE 1.3 mg/dL (0.55-1.3)
[2022-11-23 11:36] LABS: BILIRUBIN,TOTAL 0.3 mg/dL (0.2-1); TOT PROT 7.5 g/dl (6.4-8.2)
[2022-11-23 11:39] LABS: ALBUMIN 3.6 g/dl (3.4-5.0)
[2022-11-23 15:26] LABS: EPI CELLS 2 /uL (0-25.1); HYALINE CASTS 0 /uL (0-3.1); PH,URINE 7.5 (5.0-8.0); URINE APPEARANCE CLEAR; URINE BACTERIA 1 /uL (0-1359); URINE BILIRUBIN NEGATIVE (NEGATIVE); URINE COLOR YELLOW; URINE GLUCOSE (UA) 1+ (NEGATIVE); URINE KETONE NEGATIVE (NEGATIVE); URINE LEUK ESTERASE NEGATIVE (NEGATIVE); URINE NITRITE NEGATIVE (NEGATIVE); URINE PROTEIN 1+ (NEGATIVE); URINE RBC 5 /uL (0-23.9); URINE UROBILINOGEN 0.2 mg/dL (0.2-1.0); URINE WBC 3 /uL (0-25.8)
[2022-11-23] MEDS: hydrOXYzine PAMOATE 25 MG CAPSULE (FP) PO PRN (16:41)
[2022-11-23] MEDS: THIAMINE HCL 100 MG TABLET (FP) PO SCH (21:43)
[2022-11-23] MEDS: MELATONIN 5 MG TABLETS PO SCH (21:43)
[2022-11-23] MEDS ORDERED: POTASSIUM CHLORIDE ORAL LIQUID 20 MEQ/15 ML PO SCH (22:00)
[2022-11-24] MEDS: cloNIDine HCL 0.1 MG TABLET PO PRN (05:59)
[2022-11-24] MEDS: methaDONE HCL 40 MG DISPERSABLE TABLET PO SCH (06:00)
[2022-11-24] MEDS: amLODIPine BESYLATE 10 MG TABLET (FP) PO SCH (09:55)
[2022-11-24] MEDS: PRENATAL VITAMINS W/ FOLIC ACID TABLET (FP) PO SCH (09:55)
[2022-11-24] MEDS: hydrOXYzine PAMOATE 25 MG CAPSULE (FP) PO PRN (09:56)
[2022-11-24] MEDS: THIAMINE HCL 100 MG TABLET (FP) PO SCH (21:40)
[2022-11-24] MEDS: MELATONIN 5 MG TABLETS PO SCH (21:40)
[2022-11-25] MEDS: cloNIDine HCL 0.1 MG TABLET PO PRN (05:56)
[2022-11-25] MEDS: methaDONE HCL 40 MG DISPERSABLE TABLET PO SCH (05:57)
[2022-11-25] MEDS: amLODIPine BESYLATE 10 MG TABLET (FP) PO SCH (10:14)
[2022-11-25] MEDS: PRENATAL VITAMINS W/ FOLIC ACID TABLET (FP) PO SCH (10:14)
[2022-11-25] MEDS: hydrOXYzine PAMOATE 25 MG CAPSULE (FP) PO PRN (10:15)
[2022-11-25] MEDS: MELATONIN 5 MG TABLETS PO SCH (21:51)
[2022-11-25] MEDS: THIAMINE HCL 100 MG TABLET (FP) PO SCH (21:51)
[2022-11-26] MEDS: cloNIDine HCL 0.1 MG TABLET PO PRN (06:07)
[2022-11-26] MEDS: methaDONE HCL 40 MG DISPERSABLE TABLET PO SCH (06:08)
[2022-11-26] MEDS: PRENATAL VITAMINS W/ FOLIC ACID TABLET (FP) PO SCH (10:04)
[2022-11-26] MEDS: amLODIPine BESYLATE 10 MG TABLET (FP) PO SCH (10:04)
[2022-11-26] MEDS: hydrOXYzine PAMOATE 25 MG CAPSULE (FP) PO PRN (10:05)
[2022-11-26] MEDS: MELATONIN 5 MG TABLETS PO SCH (23:01)
[2022-11-26] MEDS: THIAMINE HCL 100 MG TABLET (FP) PO SCH (23:02)
[2022-11-27] MEDS: methaDONE HCL 40 MG DISPERSABLE TABLET PO SCH (05:57)
[2022-11-27] MEDS: cloNIDine HCL 0.1 MG TABLET PO PRN (05:59)
[2022-11-27] MEDS: PRENATAL VITAMINS W/ FOLIC ACID TABLET (FP) PO SCH (09:40)
[2022-11-27] MEDS: amLODIPine BESYLATE 10 MG TABLET (FP) PO SCH (09:40)
[2022-11-27] MEDS: hydrOXYzine PAMOATE 25 MG CAPSULE (FP) PO PRN (09:41)
[2022-11-27] MEDS: MELATONIN 5 MG TABLETS PO SCH (21:46)
[2022-11-27] MEDS: THIAMINE HCL 100 MG TABLET (FP) PO SCH (21:46)
[2022-11-28] MEDS: cloNIDine HCL 0.1 MG TABLET PO PRN (05:53)
[2022-11-28] MEDS: methaDONE HCL 40 MG DISPERSABLE TABLET PO SCH (05:54)
[2022-11-28] MEDS: amLODIPine BESYLATE 10 MG TABLET (FP) PO SCH (10:24)
[2022-11-28] MEDS: PRENATAL VITAMINS W/ FOLIC ACID TABLET (FP) PO SCH (10:24)
[2022-11-28] MEDS: hydrOXYzine PAMOATE 25 MG CAPSULE (FP) PO PRN (10:26)
[2022-11-28] MEDS: THIAMINE HCL 100 MG TABLET (FP) PO SCH (21:36)
[2022-11-28] MEDS: MELATONIN 5 MG TABLETS PO SCH (21:36)
[2022-11-29] MEDS: cloNIDine HCL 0.1 MG TABLET PO PRN (05:57)
[2022-11-29] MEDS: methaDONE HCL 40 MG DISPERSABLE TABLET PO SCH (05:58)
[2022-11-29] MEDS: PRENATAL VITAMINS W/ FOLIC ACID TABLET (FP) PO SCH (10:04)
[2022-11-29] MEDS: amLODIPine BESYLATE 10 MG TABLET (FP) PO SCH (10:04)
[2022-11-29] MEDS: hydrOXYzine PAMOATE 25 MG CAPSULE (FP) PO PRN (10:06)
[2022-11-29] MEDS: THIAMINE HCL 100 MG TABLET (FP) PO SCH (21:40)
[2022-11-29] MEDS: MELATONIN 5 MG TABLETS PO SCH (21:40)
[2022-11-30] MEDS: methaDONE HCL 40 MG DISPERSABLE TABLET PO SCH (05:58)
[2022-11-30 06:57] VITALS: BP 147/74; PULSE 80; RESP 18; TEMP 97.8
== END 2022-11-30 09:12 | disposition home or self-care (01) | DRG 772 ==
LOC: YASAS 19:16 → Y3W 11-22 02:48
PROVIDERS: ADMIT Allergy & Immunology; ATTEND Allergy & Immunology
PROC: HZ42ZZZ Group Counseling for Substance Abuse Treatment, Cognitive-Behavioral (ICD-10-PCS; principal; 2022-11-22)
DX: F11.20 Opioid dependence, uncomplicated (principal); F10.20 Alcohol dependence, uncomplicated; F14.20 Cocaine dependence, uncomplicated; F12.20 Cannabis dependence, uncomplicated; F19.24 Other psychoactive substance dependence with psychoactive substance-induced mood disorder; F43.10 Post-traumatic stress disorder, unspecified; E87.6 Hypokalemia; I10 Essential (primary) hypertension; N17.9 Acute kidney failure, unspecified; N18.9 Chronic kidney disease, unspecified; Z86.19 Personal history of other infectious and parasitic diseases; Z86.69 Personal history of other diseases of the nervous system and sense organs
CPT/HCPCS: 36415; 80053; 81003; 82140; 83036; 85027; 85610; 86780; 86803; 87086; 87522; 93005; 93010; C9803-CS; U0003; U0005

== ENCOUNTER 2023-05-21 09:39 | Inpatient (IN) | payer OTHER ==
[2023-05-21 10:28] VITALS: BMI 19.8
[2023-05-21] MEDS ORDERED: guaiFENesin 600 MG TABLET.ER (FP) PO PRN (11:14)
[2023-05-21] MEDS ORDERED: CYCLOBENZAPRINE HCL 10 MG TABLET (FP) PO PRN (11:14)
[2023-05-21] MEDS ORDERED: BENZONATATE 200 MG CAPSULE PO PRN (11:14)
[2023-05-21] MEDS ORDERED: MAG HYDROX/AL HYDROX/SIMETH 30 ML UNIT-DOSE CUP PO PRN (11:14)
[2023-05-21] MEDS ORDERED: NALOXONE HCL (KLOXXADO) 8 MG SPRAY NS PRN (11:14)
[2023-05-21] MEDS ORDERED: NICOTINE POLACRILEX 2 MG GUM BUC PRN (11:14)
[2023-05-21] MEDS ORDERED: POLYETHYLENE GLYCOL (HEALTHYLAX) 3350 17 GM PACKET PO PRN (11:14)
[2023-05-21] MEDS ORDERED: MAGNESIUM HYDROX 2400MG/30ML ORAL SUSPENSION 30 ML CUP PO PRN (11:14)
[2023-05-21] MEDS ORDERED: BENZOCAINE/MENTHOL (CHLORASEPTIC ) LOZENGE MM PRN (11:14)
[2023-05-21] MEDS ORDERED: DICYCLOMINE HCL 10 MG CAPSULE PO PRN (11:14)
[2023-05-21] MEDS ORDERED: LOPERAMIDE HCL 2 MG CAPSULE PO PRN (11:14)
[2023-05-21] MEDS ORDERED: ACETAMINOPHEN 325 MG TABLET (FP) PO PRN (11:14)
[2023-05-21] MEDS ORDERED: P-EPHED 60MG/TRIPROLIDI 2.5MG TABLET PO PRN (11:14)
[2023-05-21] MEDS ORDERED: NALOXONE HCL 0.4 MG/ML VIAL IM PRN (11:14)
[2023-05-21] MEDS: amLODIPine BESYLATE 10 MG TABLET (FP) PO SCH (12:28)
[2023-05-21] MEDS: hydrOXYzine PAMOATE 25 MG CAPSULE (FP) PO PRN (12:28)
[2023-05-21] MEDS ORDERED: amLODIPine BESYLATE 5 MG TABLET (FP) ONE (12:46)
[2023-05-21] MEDS ORDERED: hydrOXYzine PAMOATE 25 MG CAPSULE (FP) PO ONE (12:46)
[2023-05-21] MEDS: diazePAM 5 MG TABLET PO SCH ×2 (17:00→22:28)
[2023-05-21] MEDS: diazePAM 5 MG TABLET PO PRN (18:59)
[2023-05-21] MEDS: MELATONIN 5 MG TABLETS PO SCH (22:27)
[2023-05-21] MEDS: THIAMINE HCL 100 MG TABLET (FP) PO SCH (22:28)
[2023-05-22] MEDS: diazePAM 5 MG TABLET PO PRN ×2 (02:19→13:41)
[2023-05-22] MEDS: diazePAM 5 MG TABLET PO SCH ×4 (05:37→22:14)
[2023-05-22] MEDS: ONDANSETRON *ODT* 4 MG TABLET SL PRN ×2 (06:17→15:11)
[2023-05-22] MEDS: hydrOXYzine PAMOATE 25 MG CAPSULE (FP) PO PRN ×2 (06:17→15:11)
[2023-05-22] MEDS: methaDONE HCL 40 MG DISPERSABLE TABLET PO SCH (10:12)
[2023-05-22] MEDS: PRENATAL VITAMINS W/ FOLIC ACID TABLET (FP) PO SCH (10:14)
[2023-05-22] MEDS: amLODIPine BESYLATE 10 MG TABLET (FP) PO SCH (10:14)
[2023-05-22 11:07] LABS: HEMATOCRIT 32.3 % (35.4-49); HEMOGLOBIN 10.7 GM/dL (11.7-16.9); MCH 27.2 pg (25.7-33.7); MCHC 33.2 g/dl (32.0-35.9); MEAN CELL VOLUME 81.8 fl (80-96); MEAN PLT VOLUME 9.4 fl (7.5-11.1); PLATELET COUNT 312 10^3/uL (134-434); RBC 3.95 M/mm3 (4.00-5.60); RDW 18.4 % (11.9-15.9); WHITE BLOOD COUNT 7.8 K/mm3 (4.0-10.0)
[2023-05-22 11:13] LABS: POTASSIUM 3.8 mmol/L (3.5-5.1)
[2023-05-22 11:16] LABS: CALCIUM 9.2 mg/dL (8.5-10.1)
[2023-05-22 11:17] LABS: ALBUMIN 2.9 g/dl (3.4-5.0)
[2023-05-22 11:21] LABS: BILIRUBIN,TOTAL 0.3 mg/dL (0.2-1)
[2023-05-22] MEDS: BISMUTH SUBSALICYLATE 524 MG/30 ML PO PRN (17:18)
[2023-05-22] MEDS ORDERED: TRIMETHOBENZAMIDE HCL 200MG/2ML INJ IM ONE (19:28)
[2023-05-22] MEDS: THIAMINE HCL 100 MG TABLET (FP) PO SCH (22:13)
[2023-05-22] MEDS: MELATONIN 5 MG TABLETS PO SCH (22:13)
[2023-05-23] MEDS: diazePAM 5 MG TABLET PO PRN ×2 (02:17→16:01)
[2023-05-23] MEDS: BISMUTH SUBSALICYLATE 524 MG/30 ML PO PRN (02:21)
[2023-05-23] MEDS: methaDONE HCL 40 MG DISPERSABLE TABLET PO SCH (05:23)
[2023-05-23] MEDS: diazePAM 5 MG TABLET PO SCH ×3 (05:24→22:12)
[2023-05-23] MEDS: ONDANSETRON *ODT* 4 MG TABLET SL PRN (05:26)
[2023-05-23] MEDS: amLODIPine BESYLATE 10 MG TABLET (FP) PO SCH (10:32)
[2023-05-23] MEDS: PRENATAL VITAMINS W/ FOLIC ACID TABLET (FP) PO SCH (10:32)
[2023-05-23] MEDS: THIAMINE HCL 100 MG TABLET (FP) PO SCH (22:12)
[2023-05-23] MEDS: MELATONIN 5 MG TABLETS PO SCH (22:12)
[2023-05-23] MEDS: hydrOXYzine PAMOATE 25 MG CAPSULE (FP) PO PRN (22:12)
[2023-05-24] MEDS: methaDONE HCL 40 MG DISPERSABLE TABLET PO SCH (05:26)
[2023-05-24] MEDS ORDERED: diazePAM 5 MG TABLET PO SCH (06:00)
[2023-05-24 08:55] VITALS: BP 118/69; PULSE 64; RESP 18; TEMP 96.9
[2023-05-24] MEDS: PRENATAL VITAMINS W/ FOLIC ACID TABLET (FP) PO SCH (09:51)
[2023-05-24] MEDS: amLODIPine BESYLATE 10 MG TABLET (FP) PO SCH (09:52)
[2023-05-25] MEDS ORDERED: diazePAM 5 MG TABLET PO ONE (06:00)
== END 2023-05-24 11:42 | disposition other institution (70) | DRG 773 ==
LOC: YASAS 09:39 → Y3N 11:41
PROVIDERS: ADMIT Allergy & Immunology; ATTEND Allergy & Immunology
PROC: HZ2ZZZZ Detoxification Services for Substance Abuse Treatment (ICD-10-PCS; principal; 2023-05-21)
DX: F10.230 Alcohol dependence with withdrawal, uncomplicated (principal); F11.20 Opioid dependence, uncomplicated; F17.210 Nicotine dependence, cigarettes, uncomplicated; G62.9 Polyneuropathy, unspecified; I10 Essential (primary) hypertension; M54.50 Low back pain, unspecified; G89.29 Other chronic pain; R11.10 Vomiting, unspecified; Z86.19 Personal history of other infectious and parasitic diseases; Z86.73 Personal history of transient ischemic attack (TIA), and cerebral infarction without residual deficits; Z88.8 Allergy status to other drugs, medicaments and biological substances
CPT/HCPCS: 36415; 80053; 85027; 86780; 87635; Q0162

== ENCOUNTER 2024-01-23 17:16 | Inpatient (IN) | payer OTHER ==
[2024-01-23 18:05] VITALS: BMI 22.2
[2024-01-23] MEDS ORDERED: MAG HYDROX/AL HYDROX/SIMETH 30 ML UNIT-DOSE CUP PO PRN (20:06)
[2024-01-23] MEDS ORDERED: DICYCLOMINE HCL 10 MG CAPSULE PO PRN (20:06)
[2024-01-23] MEDS ORDERED: guaiFENesin 600 MG TABLET.ER (FP) PO PRN (20:06)
[2024-01-23] MEDS ORDERED: NALOXONE HCL (KLOXXADO) 8 MG SPRAY NS PRN (20:06)
[2024-01-23] MEDS ORDERED: NALOXONE HCL 0.4 MG/ML VIAL IM PRN (20:06)
[2024-01-23] MEDS ORDERED: P-EPHED 60MG/TRIPROLIDI 2.5MG TABLET PO PRN (20:06)
[2024-01-23] MEDS ORDERED: POLYETHYLENE GLYCOL (HEALTHYLAX) 3350 17 GM PACKET PO PRN (20:06)
[2024-01-23] MEDS ORDERED: BENZOCAINE/MENTHOL (CHLORASEPTIC ) LOZENGE MM PRN (20:06)
[2024-01-23] MEDS ORDERED: BENZONATATE 200 MG CAPSULE PO PRN (20:06)
[2024-01-23] MEDS ORDERED: MAGNESIUM HYDROX 2400MG/30ML ORAL SUSPENSION 30 ML CUP PO PRN (20:06)
[2024-01-23] MEDS: ACETAMINOPHEN 325 MG TABLET (FP) PO PRN (21:24)
[2024-01-23] MEDS: THIAMINE HCL 100 MG TABLET (FP) PO SCH (21:25)
[2024-01-23] MEDS: MELATONIN 5 MG TABLETS PO SCH (21:26)
[2024-01-23] MEDS: hydrOXYzine PAMOATE 25 MG CAPSULE (FP) PO PRN (22:12)
[2024-01-23] MEDS: METHOCARBAMOL 500 MG TABLET PO PRN (22:12)
[2024-01-23] MEDS: methaDONE HCL 10 MG TABLET PO ONE (22:32)
[2024-01-24] MEDS ORDERED: methaDONE HCL 40 MG DISPERSABLE TABLET PO SCH (10:00)
[2024-01-24] MEDS: PRENATAL VITAMINS W/ FOLIC ACID TABLET (FP) PO SCH (10:36)
[2024-01-24] MEDS: LORazepam 2 MG TABLET PO SCH (10:37)
[2024-01-24] MEDS: amLODIPine BESYLATE 10 MG TABLET (FP) PO SCH (10:37)
[2024-01-24 11:54] LABS: HEMATOCRIT 31.7 % (35.4-49); HEMOGLOBIN 10.6 GM/dL (11.7-16.9); MCH 28.5 pg (25.7-33.7); MCHC 33.5 g/dl (32.0-35.9); MEAN PLT VOLUME 8.7 fl (7.5-11.1); PLATELET COUNT 318 10^3/uL (134-434); RBC 3.72 M/mm3 (4.00-5.60); RDW 15.8 % (11.9-15.9); WHITE BLOOD COUNT 5.2 K/mm3 (4.0-10.0)
[2024-01-24 12:19] LABS: CHLORIDE 105 mmol/L (98-107); SODIUM 137 mmol/L (136-145)
[2024-01-24 12:33] LABS: CALCIUM 8.5 mg/dL (8.5-10.1)
[2024-01-24 12:34] LABS: ALBUMIN 2.8 g/dl (3.4-5.0); ANION GAP 9 mmol/L (4-13); BLOOD UREA NITROGEN 35.6 mg/dL (7-18); CO2 24 mmol/L (21-32); GLUCOSE,RANDOM 88 mg/dL (74-106)
[2024-01-24 12:37] LABS: CREATININE 1.4 mg/dL (0.55-1.3); SGOT/AST 25 U/L (15-37); SGPT/ALT 38 U/L (13-61)
[2024-01-24 12:39] LABS: BILIRUBIN,TOTAL 0.5 mg/dL (0.2-1); TOT PROT 6.9 g/dl (6.4-8.2)
[2024-01-24 12:40] LABS: ALK PHOS 175 U/L (45-117)
[2024-01-24] MEDS: HYDROCHLOROTHIAZIDE 12.5 MG CAPSULE (FP) PO SCH (13:32)
[2024-01-24] MEDS: ONDANSETRON *ODT* 4 MG TABLET SL PRN (14:39)
[2024-01-24] MEDS: LOPERAMIDE HCL 2 MG CAPSULE PO PRN (14:39)
[2024-01-25] MEDS: TRIMETHOBENZAMIDE HCL 200MG/2ML INJ IM ONE (11:16)
[2024-01-25] MEDS: LORazepam 1 MG TABLET PO PRN (19:51)
[2024-01-25] MEDS: cloNIDine HCL 0.1 MG TABLET PO PRN (19:51)
[2024-01-26] MEDS: LORazepam 1 MG TABLET PO SCH (06:00)
[2024-01-27] MEDS ORDERED: LORazepam 0.5 MG TABLET PO PRN
[2024-01-27] MEDS: LORazepam 0.5 MG TABLET PO SCH (05:10)
[2024-01-28] MEDS: LORazepam 0.5 MG TABLET PO ONE (05:10)
[2024-01-28 17:13] VITALS: RESP 16
[2024-01-29 09:35] VITALS: BP 143/68; PULSE 72; TEMP 97.5
== END 2024-01-29 10:18 | disposition home or self-care (01) | DRG 773 ==
LOC: YASAS 17:16 → Y3N 20:33
PROVIDERS: ADMIT Allergy & Immunology; ATTEND Surgery
PROC: HZ2ZZZZ Detoxification Services for Substance Abuse Treatment (ICD-10-PCS; principal; 2024-01-23)
DX: F10.230 Alcohol dependence with withdrawal, uncomplicated (principal); F11.20 Opioid dependence, uncomplicated; F14.20 Cocaine dependence, uncomplicated; F12.20 Cannabis dependence, uncomplicated; F17.210 Nicotine dependence, cigarettes, uncomplicated; F31.9 Bipolar disorder, unspecified; F43.10 Post-traumatic stress disorder, unspecified; I10 Essential (primary) hypertension; M54.50 Low back pain, unspecified; G89.29 Other chronic pain; Z88.8 Allergy status to other drugs, medicaments and biological substances
CPT/HCPCS: 0241U-QW; 36415; 71046-TC-FY; 80053; 80307; 82962; 85027; 86780; 87811; 93005; 93010; Q0162